=== PATIENT | female | born 1975 | race Caucasian/White ===

== ENCOUNTER 2019-04-23 05:36 | Day surgery (SDC) | payer BC ==
[2019-04-21 11:35] LABS: HEMATOCRIT 37.4 % (36.0-47.0); HEMOGLOBIN 12.2 g/dL (12.0-15.5); MEAN CORPUSCULAR HEMOGLOBIN 24.2 pg (27.0-33.4); MEAN CORPUSCULAR HGB CONC 32.7 g/dL (32.0-36.0); MEAN CORPUSCULAR VOLUME 74 fl (80-97); PLATELET COUNT 222 10^3/uL (150-450); RED BLOOD COUNT 5.06 10^6/uL (3.72-5.28); RED CELL DISTRIBUTION WIDTH 14.2 % (11.5-14.0); WHITE BLOOD COUNT 5.9 10^3/uL (4.0-10.5)
[2019-04-21 11:37] LABS: APPEARANCE,URINE CLEAR; BILIRUBIN,URINE NEGATIVE (NEGATIVE); COLOR,URINE YELLOW; GLUCOSE, URINE NEGATIVE (NEGATIVE); KETONES,URINE NEGATIVE (NEGATIVE); LEUKOCYTE ESTERASE,URINE NEGATIVE (NEGATIVE); NITRITE,URINE NEGATIVE (NEGATIVE); PROTEIN,URINE NEGATIVE (NEGATIVE); URINE SPECIFIC GRAVITY 1.011; UROBILINOGEN,URINE NEGATIVE mg/dL (<2.0)
[2019-04-21 12:05] LABS: ANION GAP 11 (5-19); BLOOD UREA NITROGEN 17 mg/dL (7-20); CALCIUM 9.2 mg/dL (8.4-10.2); CARBON DIOXIDE 27 mmol/L (22-30); CHLORIDE 101 mmol/L (98-107); GLUCOSE 88 mg/dL (75-110); POTASSIUM 4.6 mmol/L (3.6-5.0)
[~2019-04-23 05:36] MED LIST: CLINDAMYCIN 600 MG/D5W RTU 600 MG/50 ML RTUPB IV ONE; CLINDAMYCIN 600 MG/D5W RTU 600 MG/50 ML RTUPB IV PRN; LACTATED RINGERS 1000 ML IV PRN; LIDOCAINE 0.5% INJ-PF (5 MG/ML) 50 ML SDV SUBCUT PRN; SCOPOLAMINE HYDROBROMIDE 1.5 MG PATCH.TD72 ONE; SCOPOLAMINE HYDROBROMIDE 1.5 MG PATCH.TD72 TD PRN
[2019-04-23] MEDS ORDERED: MIDAZOLAM 2 MG/2 ML INJ ONE (07:06)
[2019-04-23] MEDS ORDERED: FENTANYL CITRATE INJ/PF 100 MCG/2 ML AMPUL ONE (07:06)
[2019-04-23] MEDS ORDERED: PROPOFOL INJ 200 MG/20 ML VIAL IV ONE (07:07)
[2019-04-23] MEDS ORDERED: MEPERIDINE HCL/PF INJ 25 MG/1 ML DISP.SYRIN IV PRN (07:33)
[2019-04-23] MEDS ORDERED: PROMETHAZINE HCL INJ 25 MG/1 ML VIAL IV PRN (07:33)
[2019-04-23] MEDS ORDERED: FENTANYL CITRATE INJ/PF 100 MCG/2 ML AMPUL IV PRN ×3 (07:33)
[2019-04-23] MEDS ORDERED: DIPHENHYDRAMINE HCL 50 MG/ML VIAL IV PRN (07:33)
[2019-04-23] MEDS ORDERED: MORPHINE SULFATE 10 MG/ML INJ IV PRN (07:33)
[2019-04-23] MEDS ORDERED: LIDOCAINE 1% INJ-PF (10 MG/ML) 30 ML SDV ONE (07:35)
[2019-04-23] MEDS: FENTANYL CITRATE INJ/PF 100 MCG/2 ML AMPUL ONE ×2 (08:04→08:10)
[2019-04-23] MEDS ORDERED: HYDROMORPHONE HCL INJ/PF 2 MG/ML AMPULE INJ PRN (08:25)
[2019-04-23] MEDS ORDERED: RINGERS SOLUTION,LACTATED 1,000 ML IV PRN (08:26)
[2019-04-23] MEDS ORDERED: PROMETHAZINE HCL INJ 25 MG/1 ML VIAL IM PRN (08:27)
[2019-04-23] MEDS: DIPHENHYDRAMINE HCL 50 MG/ML VIAL ONE ×2 (08:35→08:40)
[2019-04-23 10:03] VITALS: BP 110/77
--- NOTE | 2019-04-23 11:00 | OPERATIVE REPORT E ---
Operative Report NAME: ARIA STEELE : 1975 AGE: 43Y DATE OF SURGERY: ROOM: PREOPERATIVE DIAGNOSIS: MENORRHAGIA. POSTOPERATIVE DIAGNOSES: 1. MENORRHAGIA. 2. ENDOMETRIAL POLYP. OPERATION: Hysteroscopic resection of endometrial polyp via MyoSure. SURGEON: HOLLIS VALENCIA M.D. COMPLICATIONS: None. ANESTHESIA: LMAC paracervical block with 1% lidocaine, 8 mL. FINDINGS: An anterior endometrial polyp. ECC was also done. INDICATIONS FOR PROCEDURE: The patient had abnormal uterine bleeding for a number of months and was unresponsive to usual outpatient management. Ultrasound demonstrated what appeared to be an endometrial polyp present. She was brought in for MyoSure excision. The usual risks of bleeding, infection, anesthesia, damage to organs and tissues were discussed, the patient understood. PROCEDURE: The patient was taken to the operating room, placed in the modified lithotomy position. After adequate anesthesia was ascertained, prepped and draped for a hysteroscopy. Paracervical block was placed. A single-tooth tenaculum was placed on the anterior lip of the cervix. The cervix was dilated to admit an operative hysteroscope. Hysteroscopy ensued. The above-noted polyp was identified, removed via MyoSure. A cervical biopsy was likewise performed and sent as a separate specimen. At the completion of the procedure instruments were removed, bleeding was nil. The patient was taken to recovery in stable condition. DICTATING PHYSICIAN: HOLLIS VALENCIA M.D. [id number] PHY#: [id number] ID: [id number] JOB#: [id number] ACCT: [id number] cc:HOLLIS VALENCIA M.D. >
[2019-04-23] MEDS ORDERED: KETOROLAC TROMETHAMINE 60 MG/2 ML SDV ONE (13:38)
[2019-04-23] MEDS ORDERED: ONDANSETRON HCL INJ/PF 4 MG/2 ML SDV ONE (13:38)
[2019-04-23] MEDS ORDERED: IBUPROFEN 800 MG TABLET PO SCH (14:00)
== END 2019-04-23 09:45 | disposition home or self-care (01) ==
LOC: OROUT 05:36
PROVIDERS: ATTEND Specialist
DX: N92.0 Excessive and frequent menstruation with regular cycle (principal); N84.0 Polyp of corpus uteri; D64.9 Anemia, unspecified; J45.909 Unspecified asthma, uncomplicated; D56.9 Thalassemia, unspecified; E16.2 Hypoglycemia, unspecified; Z79.899 Other long term (current) drug therapy
CPT/HCPCS: 86900; 86901; 36415; 86850; 85027; 81025; 80048; 81001; 88305 ×2; 58558; J2250; J1200; J1885; J3010; J3490; J2405; J2704; 952